=== PATIENT | male | born 1995 | race Two or more races ===

== ENCOUNTER 2017-07-04 14:31 | Emergency (ER) | payer SELFPAY ==
[2017-07-04 14:54] VITALS: BP 111/72; O2SAT 95
[2017-07-04] MEDS ORDERED: CEPHALEXIN 500 MG CAP PO ONE (15:15)
--- NOTE | 2017-07-04 15:17 | EDPHY ---
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 His boss made him come to the ER for evaluation this evening. Denies paresthesia. Denies sensory deficit. He does note that is quite sensitive and tender. PHYSICAL EXAM (Prior to examination, patient consented to physical exam, hands were washed and my usual and customary physical exam procedures followed) 1) GENERAL: Well-developed, well-nourished, alert and oriented. Appears to be in no acute distress. 2) HEAD: Normocephalic 3) HEENT: sclera anicteric 4) LUNGS: Breathing comfortably. 5) SKIN: left thumb distal phalanx tissue avulsion approximately 70% with viable flap . No signs of infection, negative kanavel sign. 6) MUSCULOSKELETAL: Flexor extensor function at the MCP and IP are present. 7) NEUROLOGIC: Full sensation Smoking Status: Never smoked Constitutional: Initial Vital Signs Temperature (C) 36.8 C 07/04/17 14:52 Heart Rate 70 07/04/17 14:52 Respiratory Rate 17 07/04/17 14:52 Blood Pressure 111/72 07/04/17 14:52 O2 Sat (%) 95 07/04/17 14:52 O2 Delivery Mode Room Air Allergies/Adverse Reactions: No Known Allergies Allergy (Unverified 07/04/17 14:51) Home Medications: Medication Instructions Recorded Cephalexin [Keflex] 500 mg PO TID 7 Days cap 07/04/17 MDM/Departure - MDM Medications Given: Discontinued Medications Cephalexin HCl (Keflex) 500 mg PO EDNOW ONE PRN Reason: Protocol Stop: 07/04/17 15:16 Last Admin: 07/04/17 15:46 Dose: 500 mg ED Course/Re-evaluation: Care of patient under supervision of secondary supervising physician Dr Mejia . This patient's wound is 2-day-old, was covered in super glue that the patient applied. Digital nerve block was applied, the wound was cleansed and tissue adhesive removed by myself. Because the flap nature of this laceration I did recommend placement of at least 1 suture to tack the skin edges together. He has been informed that due to his delay in seeking medical attention this may result in chronic and permanent disability, aesthetic dysfunction to the digit. He verbalized understanding of this. He has no signs of infection at this time. I am starting on prophylactic Keflex. Recommend he follow up with on-call hand surgery in the next 1-2 days. He has been informed that this flap may necrose and may necessitate removal. Because worker's comp injury he will need to follow up with work comp provider also - Depart Disposition: Home, Routine, Self-Care Clinical Impression: Avulsion of skin of left thumb Qualifiers: Encounter type: initial encounter Qualified Code(s): S61.002A - Unspecified open wound of left thumb without damage to nail, initial encounter Condition: Good Instructions: Skin Avulsion (ED) Additional Instructions: Return to the ER if you develop redness, swelling, discharge, warmth to the wound, red streaks going up your arm , or any other symptoms that concern you. Prescriptions: Cephalexin [Keflex] 500 mg PO TID 7 Days cap Referrals: Nicholas Casper MD [Medical Doctor] - 1-2 days without fail
[2017-07-04 16:12] VITALS: PULSE 65; RESP 18; TEMP 98.6
== END 2017-07-04 16:22 | disposition home or self-care (01) ==
DX: S61.002A Unspecified open wound of left thumb without damage to nail, initial encounter (principal); W26.8XXA Contact with other sharp object(s), not elsewhere classified, initial encounter; Y99.0 Civilian activity done for income or pay